=== PATIENT | male | born 1950 | race Caucasian/White ===

== ENCOUNTER → 2017-01-25 | Day surgery (SDC) | payer BC, OTHER ==
[~2017-01-25] VITALS: Ht 193 cm; Wt 152.0 kg
[~2017-01-25] MED LIST: CLOBETASOL EMOL30 GM TOP; CPAP; NORCO 5-325 TA1 EACH PO; STELARA90 MG/1 ML SUB-Q; THERA-VITE W/ B1 TAB PO; [UNRECOGNIZED DRUG - OTHER] TOP
--- NOTE | ~2017-01-25 | OR ---
PATIENT'S NAME: SANDIE KRISHNA [facility] AGE: 66 Y [address] 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 POSTOPERATIVE DIAGNOSIS: Chronic venous insufficiency. PROCEDURE PERFORMED: 15 to 20 stab phlebectomies to the right lower extremity. VASCULAR NURSE: VERNA Urena ANESTHESIA: General. ESTIMATED FLUID LOSS: 100 mL. OPERATIVE FINDINGS: Large vein segments removed from the right leg. DESCRIPTION OF PROCEDURE: The patient was brought to the operating room, placed supine on the operating table, and prepped and draped in a sterile manner. Preoperative time-out was performed. The patient received preoperative antibiotics. We proceeded to use an 11 blade to create small stab wounds in the near proximity to large varicose veins. We then used a Pepe hook to remove the veins along with clamps, to clamp on the vein, to remove the vein; repeated this approximately 15 to 20 times; removing large vein segments each time; using direct pressure for hemostasis. Once we removed all large vein segments that we could find, we used Dermabond to seal each stab incision. We then wrapped the leg with Kerlix, Raman, and then Coban. The patient tolerated the procedure well and was transferred to the recovery room and home later that day. MD ANDRÉS REECEM/modl PATIENT'S NAME: SANDIE KRISHNA [facility] AGE: 66 Y [address] ROOM: [place] [address] LOCATION: [facility] [place] ADMIT DATE: 01/25/2017 OR/Procedure Report DISCHARGE DATE: FAMILY PHYSICIAN: Nilo Jaimes MD ATTENDING PHYSICIAN: REYNALDO NORTON /[id number] d: 01/25/17 1524 t: 01/27/17 1042, OPERATIVE SUMMARY
[2017-01-25 06:42] LABS: BASOPHIL # 0.1 K/uL (0.0-0.2); BASOPHIL % 0.9 %; EOSINOPHIL % 12.4 %; HEMATOCRIT 42.5 % (37.0-53.0); HEMOGLOBIN 14.1 g/dL (11.0-16.0); IMMATURE GRANULOCYTE % 0.4 %; LYMPHOCYTE # 1.7 K/uL (0.8-4.0); LYMPHOCYTE % 22.2 %; MCH 32.2 pg (27.0-34.0); MCHC 33.2 gm/dL (32.0-36.5); MONOCYTE # 0.8 K/uL (0.0-1.0); MONOCYTE % 10.4 %; MPV 11.5 fl (9.4-12.4); NEUTROPHIL # (ANC) 4.1 K/uL (1.4-9.0); NEUTROPHIL % 53.7 %; NRBC % 0 /100WBC (0-0.00); PLATELET COUNT 223 K/uL (150-450); RBC 4.38 M/uL (3.50-5.50); RDW-CV 13.2 % (11.9-14.6); WBC 7.7 K/uL (4.0-11.0)
[2017-01-25 06:59] LABS: ALBUMIN 3.3 gm/dL (3.5-5.0); CALCIUM 8.4 mg/dL (8.5-10.5); CREATININE 1.4 mg/dL (0.6-1.3); TOTAL BILIRUBIN 0.2 mg/dL (0.0-1.5); TOTAL PROTEIN 6.9 g/dL (6.0-8.4)
== END | disposition disaster alternative care site (69) ==
LOC: GPOC 12-14 10:00 → GSDC 12-20 10:00
PROVIDERS: Surgery Vascular Surgery
PROC: 06BY0ZZ Excision of Lower Vein, Open Approach (ICD-10-PCS; principal; 2017-01-25)
DX: I87.2 Venous insufficiency (chronic) (peripheral) (principal); I83.891 Varicose veins of right lower extremity with other complications; I10 Essential (primary) hypertension; G47.33 Obstructive sleep apnea (adult) (pediatric); F41.9 Anxiety disorder, unspecified; M19.90 Unspecified osteoarthritis, unspecified site; Z90.49 Acquired absence of other specified parts of digestive tract; Z98.890 Other specified postprocedural states
CPT/HCPCS: J0690; J2001; J7030; J7040